=== PATIENT | male | born 1950 | race Two or more races ===

== ENCOUNTER 2016-12-14 10:37 | Emergency (ER) | payer MEDICARE ==
[~2016-12-14] VITALS: Ht 170.2 cm; Wt 72.6 kg
--- NOTE | 2016-12-14 11:07 | NUR ---
PT IS IN ROOM #1A. DR HAND EVALUATED THE PT.
[2016-12-14] MEDS ORDERED: ABILIFY (11:20)
--- NOTE | 2016-12-14 11:20 | NUR ---
I was unable to obtain any medication information from [facility] or the patient and there was no medication information sent from sending facility.
[2016-12-14] MEDS ORDERED: NEOMY/BACITRA/POLYMYXIN B OINT UD PACKET TP ONE ×2 (11:30→12:10)
[2016-12-14 12:28] LABS: NEUTROPHILS # (AUTO) 6.4 K/UL (1.8-8.9)
[2016-12-14 12:30] LABS: BASOPHILS % (AUTO) 0.5 % (0.0-2.0); EOSINOPHILS # (AUTO) 0.2 K/uL (0.0-0.7); EOSINOPHILS % (AUTO) 2.1 % (0.0-7.0); HEMATOCRIT 35.1 % (40-50); HEMOGLOBIN 11.3 G/DL (14.0-18.0); LYMPHOCYTES % (AUTO) 12.6 % (20.5-51.5); MEAN CORPUSCULAR HEMOGLOBIN 28.7 UUG (27.0-31.0); MEAN CORPUSCULAR HGB CONC 32 g/dL (32.0-37.0); MEAN CORPUSCULAR VOLUME 89.1 FL (82.0-92.0); MONOCYTES # (AUTO) 0.5 K/UL (0.1-1.30); MONOCYTES % (AUTO) 6.8 % (0.0-11.0); PLATELET COUNT (AUTO) 205 K/UL (150-450); RED BLOOD CELL COUNT(AUTO) 3.93 MIL/UL (4.7-6.1); WHITE BLOOD COUNT (AUTO) 8.1 K/UL (4.0-11.2)
[2016-12-14 12:38] LABS: POTASSIUM 3.5 mmol/L (3.5-5.1)
[2016-12-14 12:43] LABS: BILIRUBIN,DIRECT 0.1 mg/dL (0.0-0.2); BILIRUBIN,TOTAL 0.2 mg/dL (0.2-1.0); TOTAL PROTEIN, SERUM 6.6 g/dL (6.4-8.2)
--- NOTE | 2016-12-14 16:45 | NUR ---
PT WAS D/C TO HIS NURSING FACILITY VIA [facility]. D/C INSTRUCTIONS GIVEN TO THE PT AND TO PARAMEDICS.
[2016-12-14 16:47] VITALS: BP 125/75
== END 2016-12-14 17:23 | disposition home or self-care (01) ==
LOC: ER 10:37
DX: S13.9XXA Sprain of joints and ligaments of unspecified parts of neck, initial encounter (principal); M25.561 Pain in right knee; M25.562 Pain in left knee; I10 Essential (primary) hypertension; F31.9 Bipolar disorder, unspecified; R51 Headache; W10.9XXA Fall (on) (from) unspecified stairs and steps, initial encounter; Y93.89 Activity, other specified; Y99.8 Other external cause status; Y92.89 Other specified places as the place of occurrence of the external cause
CPT/HCPCS: 36415; 70030-TC; 70450; 71010; 72125; 73560; 73562; 85025; 85730; 93005; A4663